=== PATIENT | female | born 1945 | race African-American/Black ===

== ENCOUNTER 2019-03-22 13:57 | Inpatient (IN) ==
[2019-03-22 15:35] LABS: Basophils # 0.1 10*3/uL (0.0-0.2); Basophils % 0.4 % (0.0-0.8); Eosinophils % 0.1 % (0.00-10.9); Hematocrit 19.1 VOL% (35.7-47.0); Immature Granulocytes % 0.7 %; Immature Granulocytes Absolute 0.08 #; Lymphocytes % 8.9 % (21.3-54.2); Mean Corpuscular HGB Conc 30.4 GM/DL (32-36); Mean Corpuscular Volume 93.6 FL (87-102); Mean Platelet Volume 10.2 FL (9.6-12.0); Monocytes % 6.7 % (1.7-12.7); NRBC # 0.03 10*3/uL; Neutrophils % 83.2 % (38.7-73.9); Platelet Count 343 T/CUMM (130-400); Red Blood Count 2.04 MC/CUMM (3.8-5.5); Red Cell Distribution Width 17.8 % (9.3-17.3); White Blood Count 11.6 T/CUMM (4-12)
[2019-03-22 15:45] LABS: Hemoglobin 5.8 GM/DL (12.0-16.0)
[2019-03-22 15:53] LABS: PT Patient Result 10.7 SECS (9.6-12.2); Partial Thromboplastin Time 21.9 SECS (20.8-36.0)
[2019-03-22 16:00] LABS: % Iron Saturation 27.1 % (18-50); Alanine Aminotransferase 20 U/L (13-56); Albumin 3.4 G/DL (3.4-5.0); Alkaline Phosphatase 71 U/L (45-117); Aspartate Amino Transferase 15 U/L (0-37); Bilirubin,Total < 0.39 MG/DL (0.2-1.0); Blood Urea Nitrogen 22 MG/DL (7-18); Calcium 8.9 MG/DL (8.5-10.1); Estimated Glom Filtration Rate 104 ML/MIN; Ferritin 22.7 ng/ml (8-252); Glucose 175 MG/DL (74-106); Iron 89 UG/DL (50-170); Iron Binding Capacity 328 UG/DL (250-450); Osmolality,Calculated 279.8 MOS/KG (273-304)
[2019-03-22 16:06] LABS: Folate > 24.0 NG/ML (5.4-24.0); Vitamin B12 578 PG/ML (211-911)
[2019-03-22] MEDS ORDERED: DEXTROSE 10% 25 GM/250 ML BAG IV PRN (16:26)
[2019-03-22] MEDS ORDERED: PANTOPRAZOLE 40 MG VIAL IV STA (16:26)
[2019-03-22] MEDS ORDERED: ONDANSETRON 4 MG/2 ML VIAL IV PRN (16:26)
[2019-03-22] MEDS ORDERED: GLUCAGON 1 MG VIAL IM PRN (16:26)
[2019-03-22] MEDS ORDERED: SODIUM CHLORIDE 0.9% 1,000 ML IV PRN (16:38)
[2019-03-22] MEDS ORDERED: FUROSEMIDE 20 MG/2 ML VIAL IV ONE (16:40)
[2019-03-22] MEDS ORDERED: PANTOPRAZOLE INJ 200 MG in SODIUM CHLORIDE 0.9% 250 ML IV SCH (17:00)
[2019-03-22] MEDS: INSULIN LISPRO 100 UNIT/ML SUBCUT SCH ×2 (18:31→21:27)
[2019-03-22] MEDS: SODIUM CHLORIDE 0.9% 1,000 ML IV SCH (20:02)
[2019-03-22 22:27] LABS: Hematocrit 16.5 VOL% (35.7-47.0)
[2019-03-22 23:44] LABS: Apearance,Urine CLEAR (Clear); Bacteria,Urine Occasional /HPF (Few); Bilirubin,Urine Negative (Negative); Blood, Urine Negative (Negative); Glucose,Urine (UA) >=500 mg/dL (Negative); Ketones,Urine Negative (Negative); Nitrite,Urine Negative (Negative); Protein,Urine Negative; RBC,Urine 4 /HPF (0-4); Urine Color Straw (Yellow); Urine Specific Gravity 1.011 (1.001-1.035); Urine Urobilinogen < 2.0 EU/DL (0.2-1.0); WBC,Urine 1 /HPF (0-6)
[2019-03-23] MEDS ORDERED: FUROSEMIDE 20 MG/2 ML VIAL IV ONE (01:30)
[2019-03-23 02:35] LABS: Basophils % 0.3 % (0.0-0.8); Eosinophils % 0.1 % (0.00-10.9); Hematocrit 21.5 VOL% (35.7-47.0); Hemoglobin 6.6 GM/DL (12.0-16.0); Immature Granulocytes % 0.7 %; Immature Granulocytes Absolute 0.08 #; Lymphocytes # 1.6 10*3/uL (1.4-4.0); Lymphocytes % 12.6 % (21.3-54.2); Mean Corpuscular HGB Conc 30.7 GM/DL (32-36); Mean Corpuscular Volume 90.7 FL (87-102); Mean Platelet Volume 9.8 FL (9.6-12.0); Monocytes % 7.7 % (1.7-12.7); NRBC # 0.03 10*3/uL; Neutrophils % 78.6 % (38.7-73.9); Platelet Count 329 T/CUMM (130-400); Red Blood Count 2.37 MC/CUMM (3.8-5.5); Red Cell Distribution Width 17.3 % (9.3-17.3); White Blood Count 12.3 T/CUMM (4-12)
[2019-03-23 02:44] LABS: INR 0.9; PT Patient Result 10.3 SECS (9.6-12.2); Partial Thromboplastin Time 22.9 SECS (20.8-36.0)
[2019-03-23 02:56] LABS: VLDL CHOLESTEROL 25.4 MG/DL
[2019-03-23 07:23] LABS: Hematocrit 24.5 VOL% (35.7-47.0); Hemoglobin 7.7 GM/DL (12.0-16.0)
[2019-03-23] MEDS: INSULIN LISPRO 100 UNIT/ML SUBCUT SCH ×4 (09:23→20:40)
[2019-03-23 10:36] LABS: Hematocrit 25.3 VOL% (35.7-47.0); Hemoglobin 8.2 GM/DL (12.0-16.0)
[2019-03-23] MEDS ORDERED: INFLUENZA VIRUS VACCINE 0.5 ML SYRINGE IM ONE (12:00)
[2019-03-23] MEDS: SODIUM CHLORIDE 0.9% 1,000 ML IV SCH ×3 (13:41→21:08)
[2019-03-23 14:42] LABS: Hematocrit 24.4 VOL% (35.7-47.0); Hemoglobin 7.7 GM/DL (12.0-16.0)
[2019-03-23] MEDS: PANTOPRAZOLE 40 MG VIAL IV SCH (20:38)
[2019-03-24 03:04] LABS: Basophils % 0.3 % (0.0-0.8); Eosinophils # 0.1 10*3/uL (0.0-0.87); Eosinophils % 0.5 % (0.00-10.9); Hematocrit 24.1 VOL% (35.7-47.0); Hemoglobin 7.6 GM/DL (12.0-16.0); Immature Granulocytes % 0.3 %; Immature Granulocytes Absolute 0.04 #; Lymphocytes # 1.7 10*3/uL (1.4-4.0); Lymphocytes % 13.1 % (21.3-54.2); Mean Corpuscular HGB Conc 31.5 GM/DL (32-36); Mean Corpuscular Volume 88.6 FL (87-102); Mean Platelet Volume 10.3 FL (9.6-12.0); Monocytes % 7.2 % (1.7-12.7); Neutrophils % 78.6 % (38.7-73.9); Platelet Count 326 T/CUMM (130-400); Red Blood Count 2.72 MC/CUMM (3.8-5.5); Red Cell Distribution Width 18.1 % (9.3-17.3); White Blood Count 13.2 T/CUMM (4-12)
[2019-03-24 03:07] LABS: PT Patient Result 10.6 SECS (9.6-12.2)
[2019-03-24] MEDS ORDERED: SODIUM CHLORIDE 0.9% 1,000 ML IV PRN (03:46)
[2019-03-24] MEDS: PANTOPRAZOLE 40 MG VIAL IV SCH ×2 (09:05→20:41)
[2019-03-24] MEDS: INSULIN LISPRO 100 UNIT/ML SUBCUT SCH ×4 (09:05→20:40)
[2019-03-24] MEDS: SODIUM CHLORIDE 0.9% 1,000 ML IV SCH ×2 (12:29→14:00)
[2019-03-24 15:01] LABS: Hematocrit 33.1 VOL% (35.7-47.0)
[2019-03-24 15:02] LABS: Hemoglobin 11.3 GM/DL (12.0-16.0)
[2019-03-25] MEDS: SODIUM CHLORIDE 0.9% 1,000 ML IV SCH ×2 (02:08→10:19)
[2019-03-25 02:22] LABS: Basophils # 0.1 10*3/uL (0.0-0.2); Basophils % 0.4 % (0.0-0.8); Eosinophils # 0.1 10*3/uL (0.0-0.87); Eosinophils % 0.5 % (0.00-10.9); Hematocrit 32.6 VOL% (35.7-47.0); Hemoglobin 10.6 GM/DL (12.0-16.0); Immature Granulocytes % 0.5 %; Immature Granulocytes Absolute 0.08 #; Lymphocytes # 1.6 10*3/uL (1.4-4.0); Lymphocytes % 10.6 % (21.3-54.2); Mean Corpuscular HGB Conc 32.5 GM/DL (32-36); Mean Corpuscular Volume 88.8 FL (87-102); Mean Platelet Volume 10.1 FL (9.6-12.0); Monocytes % 6.3 % (1.7-12.7); Neutrophils % 81.7 % (38.7-73.9); Platelet Count 383 T/CUMM (130-400); Red Blood Count 3.67 MC/CUMM (3.8-5.5); Red Cell Distribution Width 16.8 % (9.3-17.3); White Blood Count 14.8 T/CUMM (4-12)
[2019-03-25 02:28] LABS: PT Patient Result 10.6 SECS (9.6-12.2)
[2019-03-25] MEDS ORDERED: LACTATED RINGERS 1,000 ML IV SCH (07:00)
[2019-03-25] MEDS ORDERED: PROPOFOL 200 MG/20 ML VIAL IV ONE (10:00)
[2019-03-25] MEDS ORDERED: VALSARTAN/HCTZ 160-12.5 MG TABLET PO SCH (10:00)
[2019-03-25] MEDS ORDERED: LIDOCAINE 2% 5 ML VIAL ONE (10:00)
[2019-03-25] MEDS: INSULIN LISPRO 100 UNIT/ML SUBCUT SCH ×2 (10:16→12:04)
[2019-03-25] MEDS: PANTOPRAZOLE 40 MG VIAL IV SCH (10:45)
[2019-03-25] MEDS ORDERED: VALSARTAN 160 MG TABLET PO SCH (11:00)
[2019-03-25 12:07] VITALS: BP 124/97
[2019-03-25] MEDS ORDERED: SIMVASTATIN 20 MG TABLET PO SCH (21:00)
[2019-03-25] MEDS ORDERED: GABAPENTIN 300 MG CAPSULE PO SCH (21:00)
[2019-03-25] MEDS ORDERED: DULoxetine 30 MG CAPSULE PO SCH (21:00)
[2019-03-25] MEDS ORDERED: cloNIDine 0.1 MG TABLET PO SCH (21:00)
[2019-03-26] MEDS ORDERED: OXYBUTYNIN XL 5 MG TABLET PO SCH (09:00)
[2019-03-26] MEDS ORDERED: SERTRALINE 50 MG TABLET PO SCH (09:00)
[2019-03-26] MEDS ORDERED: POTASSIUM CHLORIDE 10 MEQ TABLET PO SCH (09:00)
[2019-03-26] MEDS ORDERED: FOLIC ACID 1 MG TABLET PO SCH (09:00)
== END 2019-03-25 14:07 | disposition home or self-care (01) | DRG 378 ==
LOC: N.ED 13:57 → N.EDINP 16:26 → N.4E 16:58
PROVIDERS: ADMIT Internal Medicine; ATTEND Internal Medicine

== ENCOUNTER 2019-08-15 00:30 | Inpatient (IN) ==
[2019-08-15] MEDS ORDERED: PANTOPRAZOLE INJ 80 MG in SODIUM CHLORIDE 0.9% 100 ML IV STA (00:49)
[2019-08-15 01:15] LABS: Basophils # 0.1 10*3/uL (0.0-0.2); Basophils % 0.5 % (0.0-0.8); Eosinophils % 0.2 % (0.00-10.9); Hematocrit 24.3 VOL% (35.7-47.0); Hemoglobin 7.7 GM/DL (12.0-16.0); Immature Granulocytes % 0.7 %; Immature Granulocytes Absolute 0.09 #; Lymphocytes # 1.1 10*3/uL (1.4-4.0); Lymphocytes % 8.5 % (21.3-54.2); Mean Corpuscular HGB Conc 31.7 GM/DL (32-36); Mean Corpuscular Volume 89.7 FL (87-102); Mean Platelet Volume 11.2 FL (9.6-12.0); Monocytes % 3.1 % (1.7-12.7); Platelet Count 223 T/CUMM (130-400); Red Blood Count 2.71 MC/CUMM (3.8-5.5); Red Cell Distribution Width 16.6 % (9.3-17.3); White Blood Count 12.7 T/CUMM (4-12)
[2019-08-15] MEDS ORDERED: PANTOPRAZOLE 40 MG VIAL IV ONE (01:19)
[2019-08-15 01:29] LABS: PT Patient Result 11.3 SECS (9.6-12.2); Partial Thromboplastin Time 24.3 SECS (20.8-36.0)
[2019-08-15 01:30] LABS: Alanine Aminotransferase 20 U/L (13-56); Alkaline Phosphatase 79 U/L (45-117); Aspartate Amino Transferase 18 U/L (0-37); Bilirubin,Total < 0.39 MG/DL (0.2-1.0); Blood Urea Nitrogen 23 MG/DL (7-18); Calcium 8.9 MG/DL (8.5-10.1); Estimated Glom Filtration Rate 87 ML/MIN; Glucose 304 MG/DL (74-106); Osmolality,Calculated 293.4 MOS/KG (273-304); Total Protein 6.8 G/DL (6.4-8.3)
[2019-08-15] MEDS ORDERED: ACETAMINOPHEN 325 MG TABLET PO PRN (01:49)
[2019-08-15] MEDS ORDERED: hydrALAZINE 20 MG/1 ML VIAL IV PRN (01:49)
[2019-08-15] MEDS ORDERED: ONDANSETRON 4 MG/2 ML VIAL IV PRN (01:49)
[2019-08-15] MEDS ORDERED: NICOTINE 21 MG/24 HR PATCH TRANSDERM PRN (01:49)
[2019-08-15] MEDS ORDERED: MORPHINE 4 MG/1 ML VIAL IV PRN (01:49)
[2019-08-15] MEDS ORDERED: DEXTROSE 50% 25 GM/50 ML SYRINGE IV PRN (01:52)
[2019-08-15] MEDS ORDERED: GLUCAGON 1 MG VIAL IM PRN (01:52)
[2019-08-15] MEDS: INSULIN REGULAR 100 UNIT/ML SUBCUT SCH ×5 (04:19→22:54)
[2019-08-15] MEDS: PANTOPRAZOLE INJ 200 MG in SODIUM CHLORIDE 0.9% 250 ML IV SCH (04:25)
[2019-08-15] MEDS ORDERED: SODIUM CHLORIDE 0.9% 1,000 ML IV PRN (04:36)
[2019-08-15 04:59] LABS: Basophils % 0.3 % (0.0-0.8); Eosinophils % 0.1 % (0.00-10.9); Hematocrit 22.7 VOL% (35.7-47.0); Hemoglobin 6.7 GM/DL (12.0-16.0); Immature Granulocytes % 0.6 %; Immature Granulocytes Absolute 0.09 #; Lymphocytes # 1.2 10*3/uL (1.4-4.0); Lymphocytes % 8.4 % (21.3-54.2); Mean Corpuscular HGB Conc 29.5 GM/DL (32-36); Mean Corpuscular Volume 92.7 FL (87-102); Mean Platelet Volume 11.4 FL (9.6-12.0); Monocytes % 4.9 % (1.7-12.7); Neutrophils % 85.7 % (38.7-73.9); Platelet Count 209 T/CUMM (130-400); Red Blood Count 2.45 MC/CUMM (3.8-5.5); Red Cell Distribution Width 16.6 % (9.3-17.3); White Blood Count 14.1 T/CUMM (4-12)
[2019-08-15] MEDS: SERTRALINE 50 MG TABLET PO SCH ×2 (08:25→22:54)
[2019-08-15] MEDS: amLODIPine 5 MG TABLET PO SCH (08:25)
[2019-08-15] MEDS: VALSARTAN/HCTZ 160-12.5 MG TABLET PO SCH (08:25)
[2019-08-15] MEDS ORDERED: POTASSIUM CHLORIDE 20 MEQ TABLET PO ONE (10:06)
[2019-08-15 13:37] LABS: Hematocrit 28.1 VOL% (35.7-47.0); Hemoglobin 9.3 GM/DL (12.0-16.0)
[2019-08-16 05:19] LABS: Basophils # 0.1 10*3/uL (0.0-0.2); Basophils % 0.6 % (0.0-0.8); Eosinophils # 0.1 10*3/uL (0.0-0.87); Eosinophils % 0.9 % (0.00-10.9); Hematocrit 31.1 VOL% (35.7-47.0); Hemoglobin 9.7 GM/DL (12.0-16.0); Immature Granulocytes % 0.5 %; Immature Granulocytes Absolute 0.07 #; Lymphocytes # 2.4 10*3/uL (1.4-4.0); Lymphocytes % 16.4 % (21.3-54.2); Mean Corpuscular HGB Conc 31.2 GM/DL (32-36); Mean Corpuscular Volume 90.4 FL (87-102); Mean Platelet Volume 11.6 FL (9.6-12.0); Monocytes % 7.1 % (1.7-12.7); Neutrophils % 74.5 % (38.7-73.9); Platelet Count 251 T/CUMM (130-400); Red Blood Count 3.44 MC/CUMM (3.8-5.5); White Blood Count 14.5 T/CUMM (4-12)
[2019-08-16] MEDS: PANTOPRAZOLE INJ 200 MG in SODIUM CHLORIDE 0.9% 250 ML IV SCH (06:01)
[2019-08-16] MEDS ORDERED: POTASSIUM CHLORIDE RIDER 10 MEQ in PREMIX 1 EACH IV SCH (07:00)
[2019-08-16 07:57] LABS: Calcium 8.8 MG/DL (8.5-10.1); Osmolality,Calculated 282.3 MOS/KG (273-304)
[2019-08-16] MEDS: INSULIN REGULAR 100 UNIT/ML SUBCUT SCH ×4 (08:30→21:19)
[2019-08-16] MEDS ORDERED: POTASSIUM CHLORIDE 20 MEQ TABLET PO ONE (09:32)
[2019-08-16] MEDS: amLODIPine 5 MG TABLET PO SCH (11:01)
[2019-08-16] MEDS: VALSARTAN/HCTZ 160-12.5 MG TABLET PO SCH (11:01)
[2019-08-16] MEDS: SERTRALINE 50 MG TABLET PO SCH ×2 (11:07→21:19)
[2019-08-17 04:35] LABS: Basophils # 0.1 10*3/uL (0.0-0.2); Basophils % 0.5 % (0.0-0.8); Eosinophils # 0.1 10*3/uL (0.0-0.87); Eosinophils % 0.7 % (0.00-10.9); Hematocrit 30.2 VOL% (35.7-47.0); Hemoglobin 9.5 GM/DL (12.0-16.0); Immature Granulocytes % 0.6 %; Immature Granulocytes Absolute 0.08 #; Lymphocytes % 14.5 % (21.3-54.2); Mean Corpuscular HGB Conc 31.5 GM/DL (32-36); Mean Corpuscular Volume 89.9 FL (87-102); Mean Platelet Volume 11.4 FL (9.6-12.0); Monocytes % 7.2 % (1.7-12.7); Neutrophils % 76.5 % (38.7-73.9); Platelet Count 243 T/CUMM (130-400); Red Blood Count 3.36 MC/CUMM (3.8-5.5); Red Cell Distribution Width 16.5 % (9.3-17.3); White Blood Count 13.5 T/CUMM (4-12)
[2019-08-17 07:53] VITALS: BP 127/89
[2019-08-17] MEDS: INSULIN REGULAR 100 UNIT/ML SUBCUT SCH ×2 (08:48→12:32)
[2019-08-17] MEDS: amLODIPine 5 MG TABLET PO SCH (08:48)
[2019-08-17] MEDS: VALSARTAN/HCTZ 160-12.5 MG TABLET PO SCH (08:48)
[2019-08-17] MEDS: SERTRALINE 50 MG TABLET PO SCH (08:49)
[2019-08-17] MEDS: PANTOPRAZOLE INJ 200 MG in SODIUM CHLORIDE 0.9% 250 ML IV SCH (08:54)
[2019-08-17] MEDS ORDERED: LIDOCAINE 2% 5 ML VIAL ONE (09:00)
[2019-08-17] MEDS ORDERED: PANTOPRAZOLE 40 MG TABLET PO SCH (09:00)
[2019-08-17] MEDS ORDERED: propofoL 200 MG/20 ML VIAL IV ONE (09:00)
== END 2019-08-17 13:55 | disposition home or self-care (01) | DRG 378 ==
LOC: EDBD → EDUNIT# → N.ED 00:30 → N.EDINP 01:49 → SUATTDRO 01:49 → N.EDINP 03:33 → N.5E 04:12
PROVIDERS: ADMIT Internal Medicine; ATTEND Internal Medicine Geriatric Medicine

== ENCOUNTER 2019-08-29 11:23 | Observation (INO) ==
[2019-08-29] MEDS ORDERED: SODIUM CHLORIDE 0.9% 1,000 ML IV STA (11:26)
[2019-08-29 11:59] LABS: Basophils # 0.1 10*3/uL (0.0-0.2); Basophils % 0.5 % (0.0-0.8); Eosinophils # 0.1 10*3/uL (0.0-0.87); Eosinophils % 0.8 % (0.00-10.9); Hematocrit 23.6 VOL% (35.7-47.0); Hemoglobin 7.2 GM/DL (12.0-16.0); Immature Granulocytes % 0.6 %; Immature Granulocytes Absolute 0.08 #; Lymphocytes # 1.9 10*3/uL (1.4-4.0); Lymphocytes % 14.5 % (21.3-54.2); Mean Corpuscular HGB Conc 30.5 GM/DL (32-36); Mean Corpuscular Volume 93.7 FL (87-102); Mean Platelet Volume 10.6 FL (9.6-12.0); Monocytes % 5.7 % (1.7-12.7); NRBC # 0.02 10*3/uL; Neutrophils % 77.9 % (38.7-73.9); Platelet Count 310 T/CUMM (130-400); Red Blood Count 2.52 MC/CUMM (3.8-5.5); Red Cell Distribution Width 17.7 % (9.3-17.3); White Blood Count 13.2 T/CUMM (4-12)
[2019-08-29 12:10] LABS: PT Patient Result 10.8 SECS (9.6-12.2); Partial Thromboplastin Time 25.2 SECS (20.8-36.0)
[2019-08-29] MEDS ORDERED: FUROSEMIDE 20 MG/2 ML VIAL IV PRN (12:18)
[2019-08-29] MEDS ORDERED: SODIUM CHLORIDE 0.9% 1,000 ML IV PRN (12:18)
[2019-08-29 12:19] LABS: Alanine Aminotransferase 19 U/L (13-56); Albumin 3.4 G/DL (3.4-5.0); Alkaline Phosphatase 79 U/L (45-117); Aspartate Amino Transferase 16 U/L (0-37); Bilirubin,Total < 0.39 MG/DL (0.2-1.0); Blood Urea Nitrogen 33 MG/DL (7-18); Calcium 8.9 MG/DL (8.5-10.1); Estimated Glom Filtration Rate 78 ML/MIN; Glucose 225 MG/DL (74-106); Osmolality,Calculated 288.7 MOS/KG (273-304); Total Protein 7.3 G/DL (6.4-8.3)
[2019-08-29] MEDS ORDERED: GLUCAGON 1 MG VIAL IM PRN ×2 (15:20)
[2019-08-29] MEDS ORDERED: DEXTROSE 50% 25 GM/50 ML VIAL IV PRN ×2 (15:20)
[2019-08-29] MEDS ORDERED: ONDANSETRON 4 MG/2 ML VIAL IV PRN (15:20)
[2019-08-29] MEDS ORDERED: INSULIN LISPRO 100 UNIT/ML SUBCUT SCH (16:30)
[2019-08-29] MEDS: INSULIN LISPRO 100 UNIT/ML SUBCUT SCH ×2 (19:11→21:47)
[2019-08-29] MEDS: POTASSIUM CHLORIDE 20 MEQ TABLET PO PRN (19:19)
[2019-08-29] MEDS: PANTOPRAZOLE 40 MG TABLET PO SCH (19:19)
[2019-08-29] MEDS: POLYETHYLENE GLYCOL POWDER 17 GM PACK PO SCH (21:47)
[2019-08-30 03:04] LABS: Basophils # 0.1 10*3/uL (0.0-0.2); Basophils % 0.6 % (0.0-0.8); Eosinophils # 0.1 10*3/uL (0.0-0.87); Eosinophils % 1.3 % (0.00-10.9); Hematocrit 28.1 VOL% (35.7-47.0); Hemoglobin 8.8 GM/DL (12.0-16.0); Immature Granulocytes % 0.6 %; Immature Granulocytes Absolute 0.07 #; Lymphocytes # 1.6 10*3/uL (1.4-4.0); Lymphocytes % 14.6 % (21.3-54.2); Mean Corpuscular HGB Conc 31.3 GM/DL (32-36); Mean Corpuscular Volume 92.4 FL (87-102); Mean Platelet Volume 10.1 FL (9.6-12.0); NRBC # 0.02 10*3/uL; Neutrophils % 75.9 % (38.7-73.9); Platelet Count 242 T/CUMM (130-400); Red Blood Count 3.04 MC/CUMM (3.8-5.5); White Blood Count 11.1 T/CUMM (4-12)
[2019-08-30] MEDS: PANTOPRAZOLE 40 MG TABLET PO SCH ×2 (06:31→20:55)
[2019-08-30 06:33] LABS: Calcium 9.2 MG/DL (8.5-10.1); Osmolality,Calculated 280.5 MOS/KG (273-304)
[2019-08-30] MEDS: INSULIN LISPRO 100 UNIT/ML SUBCUT SCH ×4 (08:12→20:55)
[2019-08-30] MEDS: POTASSIUM CHLORIDE 20 MEQ TABLET PO PRN (08:12)
[2019-08-30] MEDS: POLYETHYLENE GLYCOL POWDER 17 GM PACK PO SCH ×2 (08:14→20:57)
[2019-08-30 08:52] LABS: Total Protein 7.5 G/DL (6.4-8.3)
[2019-08-31 05:31] LABS: Immunoglobulin A (Chem) 399 MG/DL (70-400); Immunoglobulin G (Chem) 968 MG/DL (700-1600); Immunoglobulin M (Chem) 74 MG/DL (40-230); Total Protein (Chem) 7.5 G/DL (6.4-8.3)
[2019-08-31 05:57] LABS: Basophils # 0.1 10*3/uL (0.0-0.2); Basophils % 0.6 % (0.0-0.8); Eosinophils # 0.2 10*3/uL (0.0-0.87); Hematocrit 34.4 VOL% (35.7-47.0); Hemoglobin 10.8 GM/DL (12.0-16.0); Immature Granulocytes % 0.2 %; Immature Granulocytes Absolute 0.02 #; Lymphocytes # 1.6 10*3/uL (1.4-4.0); Lymphocytes % 19.6 % (21.3-54.2); Mean Corpuscular HGB Conc 31.4 GM/DL (32-36); Mean Corpuscular Volume 91.7 FL (87-102); Mean Platelet Volume 10.6 FL (9.6-12.0); Neutrophils % 70.6 % (38.7-73.9); Platelet Count 293 T/CUMM (130-400); Red Blood Count 3.75 MC/CUMM (3.8-5.5); Red Cell Distribution Width 17.5 % (9.3-17.3)
[2019-08-31] MEDS: PANTOPRAZOLE 40 MG TABLET PO SCH (06:12)
[2019-08-31] MEDS: INSULIN LISPRO 100 UNIT/ML SUBCUT SCH ×2 (07:41→12:32)
[2019-08-31 08:53] LABS: Albumin (SPE) 4.5 G/DL (3.2-5.3); Albumin (SPE) Rel % 59.4 %; Alpha 1 (SPE) 0.3 G/DL (0.1-0.4); Alpha 1 (SPE) Rel % 3.4 %; Alpha 2 (SPE) 0.9 G/DL (0.4-1.0); Alpha 2 (SPE) Rel % 11.6 %; Beta (SPE) 1.1 G/DL (0.5-1.1); Beta (SPE) Rel % 14.2 %; Gamma (SPE) 0.9 G/DL (0.7-1.7); Gamma (SPE) Rel % 11.4 %
[2019-08-31] MEDS: POLYETHYLENE GLYCOL POWDER 17 GM PACK PO SCH (09:32)
[2019-08-31 12:16] VITALS: BP 144/73
== END 2019-08-31 14:08 | disposition home or self-care (01) ==
LOC: N.EDINP 11:23 → N.ED 11:23 → N.5E 16:03
PROVIDERS: ADMIT Internal Medicine Geriatric Medicine; ATTEND Internal Medicine Geriatric Medicine

== ENCOUNTER 2019-11-28 13:21 | Inpatient (IN) ==
[2019-11-28 15:21] LABS: Basophils # 0.1 10*3/uL (0.0-0.2); Basophils % 0.4 % (0.0-0.8); Eosinophils # 0.1 10*3/uL (0.0-0.87); Eosinophils % 0.5 % (0.00-10.9); Hematocrit 23.2 VOL% (35.7-47.0); Hemoglobin 7.3 GM/DL (12.0-16.0); Immature Granulocytes % 0.4 %; Immature Granulocytes Absolute 0.05 #; Lymphocytes # 1.6 10*3/uL (1.4-4.0); Lymphocytes % 14.2 % (21.3-54.2); Mean Corpuscular HGB Conc 31.5 GM/DL (32-36); Mean Corpuscular Volume 93.2 FL (87-102); Mean Platelet Volume 10.2 FL (9.6-12.0); Neutrophils % 77.5 % (38.7-73.9); Platelet Count 251 T/CUMM (130-400); Red Blood Count 2.49 MC/CUMM (3.8-5.5); Red Cell Distribution Width 17.7 % (9.3-17.3); White Blood Count 11.5 T/CUMM (4-12)
[2019-11-28 15:32] LABS: PT Patient Result 11.1 SECS (9.8-11.9)
[2019-11-28 15:43] LABS: Calcium 8.9 MG/DL (8.5-10.1); Osmolality,Calculated 278.5 MOS/KG (273-304)
[2019-11-28] MEDS ORDERED: SODIUM CHLORIDE 0.9% 500 ML IV STA (15:58)
[2019-11-28] MEDS ORDERED: ONDANSETRON 4 MG/2 ML VIAL IV STA (15:58)
[2019-11-28] MEDS ORDERED: PANTOPRAZOLE 40 MG VIAL IV STA (15:58)
[2019-11-28] MEDS ORDERED: ONDANSETRON 4 MG/2 ML VIAL IV PRN (17:15)
[2019-11-28] MEDS ORDERED: ACETAMINOPHEN 325 MG TABLET PO PRN (17:15)
[2019-11-28] MEDS ORDERED: GLUCAGON 1 MG VIAL IM PRN (17:15)
[2019-11-28] MEDS ORDERED: DEXTROSE 10% 250 ML BAG IV PRN (17:15)
[2019-11-28] MEDS ORDERED: OXYBUTYNIN XL 10 MG TABLET PO PRN (17:43)
[2019-11-28 17:49] LABS: Troponin I < 0.015 NG/ML (0.00-0.045)
[2019-11-28] MEDS ORDERED: SODIUM CHLORIDE 0.9% 1,000 ML IV PRN (17:50)
[2019-11-28] MEDS ORDERED: diphenhydrAMINE 50 MG/1 ML VIAL IV PRN (17:50)
[2019-11-28] MEDS ORDERED: FUROSEMIDE 20 MG/2 ML VIAL IV PRN (17:50)
[2019-11-28] MEDS: SODIUM CHLORIDE 0.9% 1,000 ML IV SCH (18:19)
[2019-11-28 20:36] LABS: Hematocrit 22.9 VOL% (35.7-47.0)
[2019-11-28] MEDS ORDERED: METHOTREXATE 2.5 MG TABLET PO SCH (23:30)
[2019-11-28] MEDS: GABAPENTIN 300 MG CAPSULE PO SCH (23:48)
[2019-11-28] MEDS: cloNIDine 0.1 MG TABLET PO SCH (23:48)
[2019-11-28] MEDS: DULoxetine 30 MG CAPSULE PO SCH (23:48)
[2019-11-28] MEDS: OMEGA 3 ACID ETHYL ESTERS 1 GM CAPSULE PO SCH (23:48)
[2019-11-28] MEDS: SIMVASTATIN 20 MG TABLET PO SCH (23:48)
[2019-11-28] MEDS: SERTRALINE 50 MG TABLET PO SCH (23:48)
[2019-11-28] MEDS: FERROUS SULFATE 325 MG TABLET PO SCH (23:49)
[2019-11-28] MEDS: POTASSIUM CHLORIDE 10 MEQ TABLET PO SCH (23:49)
[2019-11-28] MEDS: INSULIN LISPRO 100 UNIT/ML SUBCUT SCH (23:49)
[2019-11-29 02:18] LABS: Basophils % 0.4 % (0.0-0.8); Eosinophils # 0.1 10*3/uL (0.0-0.87); Eosinophils % 0.8 % (0.00-10.9); Hematocrit 21.1 VOL% (35.7-47.0); Hemoglobin 6.6 GM/DL (12.0-16.0); Immature Granulocytes % 0.5 %; Immature Granulocytes Absolute 0.05 #; Lymphocytes # 1.5 10*3/uL (1.4-4.0); Lymphocytes % 15.3 % (21.3-54.2); Mean Corpuscular HGB Conc 31.3 GM/DL (32-36); Mean Corpuscular Volume 94.2 FL (87-102); Mean Platelet Volume 10.3 FL (9.6-12.0); Monocytes % 7.5 % (1.7-12.7); Neutrophils % 75.5 % (38.7-73.9); Platelet Count 224 T/CUMM (130-400); Red Blood Count 2.24 MC/CUMM (3.8-5.5); Red Cell Distribution Width 17.7 % (9.3-17.3); White Blood Count 10.1 T/CUMM (4-12)
[2019-11-29 02:27] LABS: PT Patient Result 10.6 SECS (9.8-11.9)
[2019-11-29 02:48] LABS: Alanine Aminotransferase 20 U/L (13-56); Albumin 3.2 G/DL (3.4-5.0); Alkaline Phosphatase 79 U/L (45-117); Aspartate Amino Transferase 18 U/L (0-37); Bilirubin,Total < 0.39 MG/DL (0.2-1.0); Blood Urea Nitrogen 15 MG/DL (7-18); Calcium 8.5 MG/DL (8.5-10.1); Estimated Glom Filtration Rate 62 ML/MIN; Glucose 179 MG/DL (74-106); Osmolality,Calculated 279.7 MOS/KG (273-304)
[2019-11-29] MEDS: SODIUM CHLORIDE 0.9% 1,000 ML IV SCH ×3 (08:52→17:42)
[2019-11-29] MEDS ORDERED: PANTOPRAZOLE 40 MG VIAL IV SCH (09:00)
[2019-11-29 10:30] LABS: Hematocrit 23.1 VOL% (35.7-47.0); Hemoglobin 7.1 GM/DL (12.0-16.0)
[2019-11-29] MEDS: OMEGA 3 ACID ETHYL ESTERS 1 GM CAPSULE PO SCH ×2 (10:43→22:20)
[2019-11-29] MEDS: MULTIVITAMIN (CENTRUM) TABLET PO SCH (10:43)
[2019-11-29] MEDS: POTASSIUM CHLORIDE 10 MEQ TABLET PO SCH ×2 (10:43→22:20)
[2019-11-29] MEDS: amLODIPine 5 MG TABLET PO SCH (10:44)
[2019-11-29] MEDS: SERTRALINE 50 MG TABLET PO SCH ×2 (10:44→22:21)
[2019-11-29] MEDS: INSULIN LISPRO 100 UNIT/ML SUBCUT SCH ×4 (10:44→22:19)
[2019-11-29] MEDS: FOLIC ACID 1 MG TABLET PO SCH (10:44)
[2019-11-29] MEDS: FERROUS SULFATE 325 MG TABLET PO SCH ×2 (10:44→22:21)
[2019-11-29] MEDS: DULoxetine 30 MG CAPSULE PO SCH ×2 (10:44→22:20)
[2019-11-29] MEDS: PANTOPRAZOLE 40 MG VIAL IV SCH ×2 (10:45→22:21)
[2019-11-29 18:56] LABS: Hematocrit 26.9 VOL% (35.7-47.0); Hemoglobin 8.4 GM/DL (12.0-16.0)
[2019-11-29] MEDS: cloNIDine 0.1 MG TABLET PO SCH (22:20)
[2019-11-29] MEDS: GABAPENTIN 300 MG CAPSULE PO SCH (22:20)
[2019-11-29] MEDS: SIMVASTATIN 20 MG TABLET PO SCH (22:21)
[2019-11-30] MEDS: SODIUM CHLORIDE 0.9% 1,000 ML IV SCH ×4 (02:47→22:00)
[2019-11-30 05:56] LABS: Basophils % 0.5 % (0.0-0.8); Eosinophils # 0.1 10*3/uL (0.0-0.87); Eosinophils % 1.6 % (0.00-10.9); Hematocrit 26.7 VOL% (35.7-47.0); Hemoglobin 8.2 GM/DL (12.0-16.0); Immature Granulocytes % 0.5 %; Immature Granulocytes Absolute 0.04 #; Lymphocytes # 1.3 10*3/uL (1.4-4.0); Lymphocytes % 17.3 % (21.3-54.2); Mean Corpuscular HGB Conc 30.7 GM/DL (32-36); Mean Corpuscular Volume 90.8 FL (87-102); Mean Platelet Volume 10.5 FL (9.6-12.0); Monocytes % 8.1 % (1.7-12.7); Platelet Count 226 T/CUMM (130-400); Red Blood Count 2.94 MC/CUMM (3.8-5.5); White Blood Count 7.7 T/CUMM (4-12)
[2019-11-30 06:08] LABS: PT Patient Result 10.8 SECS (9.8-11.9)
[2019-11-30 06:18] LABS: Albumin 3.2 G/DL (3.4-5.0); Bilirubin,Total 0.4 MG/DL (0.2-1.0); Calcium 8.5 MG/DL (8.5-10.1); Osmolality,Calculated 280.4 MOS/KG (273-304); Total Protein 6.9 G/DL (6.4-8.3)
[2019-11-30] MEDS ORDERED: HEPARIN 5,000 UNIT/1 ML VIAL ONE (06:46)
[2019-11-30] MEDS ORDERED: TISSUE ADHESIVE 1 EACH APPLICATOR TOP ONE (06:46)
[2019-11-30] MEDS ORDERED: BUPIVACAINE MPF 0.25% 30 ML VIAL ONE (06:47)
[2019-11-30] MEDS ORDERED: LIDOCAINE 1%/EPI INJ 20 ML VIAL ONE (06:47)
[2019-11-30] MEDS ORDERED: ceFAZolin 1,000 MG in SYRINGE 1 EACH IV ONE (07:30)
[2019-11-30 07:52] LABS: Hematocrit 24.2 VOL% (35.7-47.0); Hemoglobin 7.4 GM/DL (12.0-16.0)
[2019-11-30] MEDS ORDERED: fentaNYL 100 MCG/2 ML VIAL ONE (07:55)
[2019-11-30] MEDS ORDERED: MIDAZOLAM 2 MG/2 ML VIAL ONE (07:55)
[2019-11-30] MEDS ORDERED: HEPARIN/NACL 0.9% 2 UNITS/ML 2,000 ML IV ONE (07:57)
[2019-11-30] MEDS ORDERED: HEPARIN/NACL 0.9% 2 UNITS/ML 1,000 ML IV ONE (08:00)
[2019-11-30] MEDS: INSULIN LISPRO 100 UNIT/ML SUBCUT SCH ×4 (08:47→22:45)
[2019-11-30] MEDS ORDERED: fentaNYL 100 MCG/2 ML VIAL IV ONE (09:00)
[2019-11-30] MEDS ORDERED: MIDAZOLAM 2 MG/2 ML VIAL IV ONE (09:00)
[2019-11-30] MEDS: SERTRALINE 50 MG TABLET PO SCH ×2 (11:33→21:08)
[2019-11-30] MEDS: amLODIPine 5 MG TABLET PO SCH (11:33)
[2019-11-30] MEDS: OMEGA 3 ACID ETHYL ESTERS 1 GM CAPSULE PO SCH ×2 (11:33→21:08)
[2019-11-30] MEDS: PANTOPRAZOLE 40 MG VIAL IV SCH ×2 (11:34→21:08)
[2019-11-30] MEDS: POTASSIUM CHLORIDE 10 MEQ TABLET PO SCH ×2 (11:34→21:08)
[2019-11-30] MEDS: FERROUS SULFATE 325 MG TABLET PO SCH ×2 (11:34→21:08)
[2019-11-30] MEDS: MULTIVITAMIN (CENTRUM) TABLET PO SCH (11:34)
[2019-11-30] MEDS: DULoxetine 30 MG CAPSULE PO SCH ×2 (11:34→21:07)
[2019-11-30] MEDS: FOLIC ACID 1 MG TABLET PO SCH (11:34)
[2019-11-30 19:32] LABS: Hematocrit 26.1 VOL% (35.7-47.0); Hemoglobin 8.2 GM/DL (12.0-16.0)
[2019-11-30] MEDS: SIMVASTATIN 20 MG TABLET PO SCH (21:08)
[2019-11-30] MEDS: GABAPENTIN 300 MG CAPSULE PO SCH (21:08)
[2019-11-30] MEDS: cloNIDine 0.1 MG TABLET PO SCH (21:08)
[2019-12-01 05:13] LABS: Basophils % 0.3 % (0.0-0.8); Eosinophils # 0.1 10*3/uL (0.0-0.87); Eosinophils % 1.3 % (0.00-10.9); Hematocrit 28.8 VOL% (35.7-47.0); Hemoglobin 8.9 GM/DL (12.0-16.0); Immature Granulocytes % 0.4 %; Immature Granulocytes Absolute 0.04 #; Lymphocytes # 1.2 10*3/uL (1.4-4.0); Lymphocytes % 11.6 % (21.3-54.2); Mean Corpuscular HGB Conc 30.9 GM/DL (32-36); Mean Corpuscular Volume 89.4 FL (87-102); Mean Platelet Volume 10.8 FL (9.6-12.0); Monocytes % 7.5 % (1.7-12.7); Neutrophils % 78.9 % (38.7-73.9); Platelet Count 275 T/CUMM (130-400); Red Blood Count 3.22 MC/CUMM (3.8-5.5); Red Cell Distribution Width 18.8 % (9.3-17.3); White Blood Count 10.7 T/CUMM (4-12)
[2019-12-01 05:32] LABS: Albumin 3.4 G/DL (3.4-5.0); Bilirubin,Total 0.6 MG/DL (0.2-1.0); Calcium 9.2 MG/DL (8.5-10.1); Osmolality,Calculated 281.4 MOS/KG (273-304); Total Protein 7.7 G/DL (6.4-8.3)
[2019-12-01 05:42] LABS: PT Patient Result 10.3 SECS (9.8-11.9)
[2019-12-01] MEDS: SODIUM CHLORIDE 0.9% 1,000 ML IV SCH (06:00)
[2019-12-01 08:23] VITALS: BP 111/83
[2019-12-01] MEDS: OMEGA 3 ACID ETHYL ESTERS 1 GM CAPSULE PO SCH (08:57)
[2019-12-01] MEDS: amLODIPine 5 MG TABLET PO SCH (08:57)
[2019-12-01] MEDS: FERROUS SULFATE 325 MG TABLET PO SCH (08:57)
[2019-12-01] MEDS: DULoxetine 30 MG CAPSULE PO SCH (08:57)
[2019-12-01] MEDS: FOLIC ACID 1 MG TABLET PO SCH (08:57)
[2019-12-01] MEDS: MULTIVITAMIN (CENTRUM) TABLET PO SCH (08:57)
[2019-12-01] MEDS: PANTOPRAZOLE 40 MG VIAL IV SCH (08:57)
[2019-12-01] MEDS: SERTRALINE 50 MG TABLET PO SCH (08:57)
[2019-12-01] MEDS: POTASSIUM CHLORIDE 10 MEQ TABLET PO SCH (08:57)
[2019-12-01] MEDS: INSULIN LISPRO 100 UNIT/ML SUBCUT SCH (08:58)
== END 2019-12-01 12:46 | disposition home or self-care (01) | DRG 271 ==
LOC: N.ED 13:21 → N.EDINP 17:15 → N.3E 18:53
PROVIDERS: ADMIT Emergency Medicine; ATTEND Emergency Medicine

== ENCOUNTER 2020-05-02 14:12 | Inpatient (IN) ==
[2020-05-02 15:09] LABS: Basophils # 0.1 10*3/uL (0.0-0.2); Basophils % 0.6 % (0.0-0.8); Eosinophils # 0.1 10*3/uL (0.0-0.87); Eosinophils % 0.7 % (0.00-10.9); Hematocrit 24.7 VOL% (35.7-47.0); Immature Granulocytes % 0.5 %; Immature Granulocytes Absolute 0.07 #; Lymphocytes # 1.9 10*3/uL (1.4-4.0); Lymphocytes % 13.5 % (21.3-54.2); Mean Corpuscular HGB Conc 32.4 GM/DL (32-36); Mean Corpuscular Volume 90.1 FL (87-102); Mean Platelet Volume 11.2 FL (9.6-12.0); Monocytes % 6.4 % (1.7-12.7); Neutrophils % 78.3 % (38.7-73.9); Platelet Count 252 T/CUMM (130-400); Red Blood Count 2.74 MC/CUMM (3.8-5.5); Red Cell Distribution Width 18.1 % (9.3-17.3)
[2020-05-02 15:23] LABS: Alanine Aminotransferase 19 U/L (13-56); Albumin 3.5 G/DL (3.4-5.0); Alkaline Phosphatase 84 U/L (45-117); Aspartate Amino Transferase 19 U/L (0-37); Bilirubin,Total < 0.39 MG/DL (0.2-1.0); Blood Urea Nitrogen 30 MG/DL (7-18); Calcium 9.1 MG/DL (8.5-10.1); Estimated Glom Filtration Rate 101 ML/MIN; Glucose 162 MG/DL (74-106); Osmolality,Calculated 290.3 MOS/KG (273-304); Total Protein 7.6 G/DL (6.4-8.3)
[2020-05-02] MEDS ORDERED: DEXTROSE 50% 25 GM/50 ML VIAL IV PRN (16:39)
[2020-05-02] MEDS ORDERED: ACETAMINOPHEN 325 MG TABLET PO PRN (16:39)
[2020-05-02] MEDS ORDERED: GLUCAGON 1 MG VIAL IM PRN (16:39)
[2020-05-02] MEDS ORDERED: ONDANSETRON 4 MG/2 ML VIAL IV PRN (16:39)
[2020-05-02] MEDS ORDERED: SODIUM CHLORIDE 0.9% 1,000 ML IV PRN ×3 (16:42→22:19)
[2020-05-02] MEDS ORDERED: OXYBUTYNIN XL 10 MG TABLET PO PRN (16:46)
[2020-05-02] MEDS: SODIUM CHLORIDE 0.9% 1,000 ML IV SCH (17:30)
[2020-05-02] MEDS: INSULIN LISPRO 100 UNIT/ML SUBCUT SCH ×2 (18:00→22:00)
[2020-05-02 19:17] LABS: Hematocrit 20.7 VOL% (35.7-47.0); Hemoglobin 6.6 GM/DL (12.0-16.0)
[2020-05-02 19:42] LABS: Troponin I < 0.015 NG/ML (0.00-0.045)
[2020-05-02] MEDS: PANTOPRAZOLE 40 MG VIAL IV SCH (21:42)
[2020-05-02] MEDS: GABAPENTIN 300 MG CAPSULE PO SCH (21:44)
[2020-05-02] MEDS: DULoxetine 30 MG CAPSULE PO SCH (21:45)
[2020-05-02] MEDS: DOCUSATE SODIUM 100 MG CAPSULE PO SCH (21:45)
[2020-05-02] MEDS: POTASSIUM CHLORIDE 10 MEQ TABLET PO SCH (21:45)
[2020-05-02] MEDS: SIMVASTATIN 20 MG TABLET PO SCH (21:45)
[2020-05-02] MEDS: OMEGA 3 ACID ETHYL ESTERS 1 GM CAPSULE PO SCH (21:45)
[2020-05-02] MEDS: SERTRALINE 50 MG TABLET PO SCH (21:45)
[2020-05-02] MEDS: cloNIDine 0.1 MG TABLET PO SCH (21:46)
[2020-05-02] MEDS ORDERED: FUROSEMIDE 20 MG/2 ML VIAL IV PRN (22:19)
[2020-05-02 23:47] LABS: Bilirubin,Urine Negative (Negative); Blood, Urine Negative (Negative); Glucose,Urine (UA) Negative (Negative); Ketones,Urine Negative (Negative); Nitrite,Urine Negative (Negative); Protein,Urine Negative; RBC,Urine 2 /HPF (0-4); Squamous Epithelial Cell,Urine Occasional /HPF (0-10); Urine Appearance CLEAR (Clear); Urine Color Yellow (Yellow); Urine Specific Gravity 1.016 (1.001-1.035); Urine Urobilinogen < 2.0 EU/DL (0.2-1.0); WBC,Urine 1 /HPF (0-6)
[2020-05-03] MEDS: INSULIN LISPRO 100 UNIT/ML SUBCUT SCH ×6 (00:21→21:48)
[2020-05-03] MEDS: SODIUM CHLORIDE 0.9% 1,000 ML IV SCH ×2 (06:00→21:49)
[2020-05-03 08:10] LABS: Basophils # 0.1 10*3/uL (0.0-0.2); Basophils % 0.5 % (0.0-0.8); Eosinophils # 0.1 10*3/uL (0.0-0.87); Eosinophils % 1.3 % (0.00-10.9); Hematocrit 35.3 VOL% (35.7-47.0); Hemoglobin 11.4 GM/DL (12.0-16.0); Immature Granulocytes % 0.5 %; Immature Granulocytes Absolute 0.06 #; Lymphocytes # 1.4 10*3/uL (1.4-4.0); Lymphocytes % 12.7 % (21.3-54.2); Mean Corpuscular HGB Conc 32.3 GM/DL (32-36); Mean Corpuscular Volume 87.2 FL (87-102); Monocytes % 6.5 % (1.7-12.7); Neutrophils % 78.5 % (38.7-73.9); Platelet Count 263 T/CUMM (130-400); Red Blood Count 4.05 MC/CUMM (3.8-5.5); Red Cell Distribution Width 17.3 % (9.3-17.3); White Blood Count 11.1 T/CUMM (4-12)
[2020-05-03 08:51] LABS: Risk Ratio 3.86; VLDL CHOLESTEROL 26.4 MG/DL
[2020-05-03 08:52] LABS: Albumin 3.7 G/DL (3.4-5.0); Bilirubin,Total 0.8 MG/DL (0.2-1.0); Calcium 9.4 MG/DL (8.5-10.1); Osmolality,Calculated 279.7 MOS/KG (273-304); Total Protein 8.3 G/DL (6.4-8.3)
[2020-05-03] MEDS: DULoxetine 30 MG CAPSULE PO SCH ×2 (10:10→21:47)
[2020-05-03] MEDS: LUBIPROSTONE 8 MCG CAPSULE PO SCH (10:10)
[2020-05-03] MEDS: OLMESARTAN 20 MG TABLET PO SCH (10:10)
[2020-05-03] MEDS: LETROZOLE 2.5 MG TABLET PO SCH (10:10)
[2020-05-03] MEDS: GABAPENTIN 300 MG CAPSULE PO SCH ×2 (10:11→21:47)
[2020-05-03] MEDS: POTASSIUM CHLORIDE 10 MEQ TABLET PO SCH ×2 (10:11→21:48)
[2020-05-03] MEDS: OMEGA 3 ACID ETHYL ESTERS 1 GM CAPSULE PO SCH ×2 (10:11→21:46)
[2020-05-03] MEDS: amLODIPine 5 MG TABLET PO SCH (10:11)
[2020-05-03] MEDS: FOLIC ACID 1 MG TABLET PO SCH (10:11)
[2020-05-03] MEDS: hydroCHLOROthiazide 12.5 MG CAPSULE PO SCH (10:11)
[2020-05-03] MEDS: SERTRALINE 50 MG TABLET PO SCH ×2 (10:12→21:47)
[2020-05-03 10:38] LABS: Hematocrit 31.7 VOL% (35.7-47.0); Hemoglobin 10.3 GM/DL (12.0-16.0)
[2020-05-03] MEDS ORDERED: propofoL 200 MG/20 ML VIAL IV ONE (11:34)
[2020-05-03] MEDS ORDERED: LIDOCAINE 2% 5 ML VIAL ONE (11:34)
[2020-05-03] MEDS: PANTOPRAZOLE 40 MG VIAL IV SCH ×2 (14:13→21:43)
[2020-05-03] MEDS: LACTULOSE 20 GM/30 ML UDCUP PO SCH ×2 (14:14→21:46)
[2020-05-03 14:50] LABS: Hematocrit 31.4 VOL% (35.7-47.0); Hemoglobin 10.2 GM/DL (12.0-16.0)
[2020-05-03 20:42] LABS: Hematocrit 32.3 VOL% (35.7-47.0); Hemoglobin 10.7 GM/DL (12.0-16.0)
[2020-05-03] MEDS: SIMVASTATIN 20 MG TABLET PO SCH (21:47)
[2020-05-03] MEDS: DOCUSATE SODIUM 100 MG CAPSULE PO SCH (21:47)
[2020-05-03] MEDS: cloNIDine 0.1 MG TABLET PO SCH (21:47)
[2020-05-04] MEDS: INSULIN LISPRO 100 UNIT/ML SUBCUT SCH ×4 (00:23→12:48)
[2020-05-04] MEDS: LACTULOSE 20 GM/30 ML UDCUP PO SCH (05:14)
[2020-05-04 06:19] LABS: Basophils % 0.5 % (0.0-0.8); Eosinophils # 0.1 10*3/uL (0.0-0.87); Eosinophils % 1.5 % (0.00-10.9); Hematocrit 32.2 VOL% (35.7-47.0); Hemoglobin 10.2 GM/DL (12.0-16.0); Immature Granulocytes % 0.5 %; Immature Granulocytes Absolute 0.04 #; Lymphocytes # 1.1 10*3/uL (1.4-4.0); Mean Corpuscular HGB Conc 31.7 GM/DL (32-36); Mean Corpuscular Volume 88.5 FL (87-102); Mean Platelet Volume 11.2 FL (9.6-12.0); Monocytes % 7.2 % (1.7-12.7); Neutrophils % 76.3 % (38.7-73.9); Platelet Count 229 T/CUMM (130-400); Red Blood Count 3.64 MC/CUMM (3.8-5.5); Red Cell Distribution Width 17.4 % (9.3-17.3); White Blood Count 7.5 T/CUMM (4-12)
[2020-05-04 06:52] LABS: Albumin 3.2 G/DL (3.4-5.0); Bilirubin,Total 0.4 MG/DL (0.2-1.0); Calcium 8.6 MG/DL (8.5-10.1); Osmolality,Calculated 280.4 MOS/KG (273-304); Total Protein 7.4 G/DL (6.4-8.3)
[2020-05-04] MEDS: POTASSIUM CHLORIDE 10 MEQ TABLET PO SCH (09:20)
[2020-05-04] MEDS: GABAPENTIN 300 MG CAPSULE PO SCH (09:20)
[2020-05-04] MEDS: LETROZOLE 2.5 MG TABLET PO SCH (09:21)
[2020-05-04] MEDS: OLMESARTAN 20 MG TABLET PO SCH (09:21)
[2020-05-04] MEDS: FOLIC ACID 1 MG TABLET PO SCH (09:21)
[2020-05-04] MEDS: amLODIPine 5 MG TABLET PO SCH (09:21)
[2020-05-04] MEDS: SERTRALINE 50 MG TABLET PO SCH (09:21)
[2020-05-04] MEDS: hydroCHLOROthiazide 12.5 MG CAPSULE PO SCH (09:21)
[2020-05-04] MEDS: LUBIPROSTONE 8 MCG CAPSULE PO SCH (09:21)
[2020-05-04] MEDS: DULoxetine 30 MG CAPSULE PO SCH (09:21)
[2020-05-04] MEDS: OMEGA 3 ACID ETHYL ESTERS 1 GM CAPSULE PO SCH (09:21)
[2020-05-04] MEDS: SODIUM CHLORIDE 0.9% 1,000 ML IV SCH (09:22)
[2020-05-04] MEDS: PANTOPRAZOLE 40 MG VIAL IV SCH (09:26)
[2020-05-04 12:01] VITALS: BP 130/84
[2020-05-07] MEDS ORDERED: METHOTREXATE 2.5 MG TABLET PO SCH (09:00)
== END 2020-05-04 14:00 | disposition home or self-care (01) | DRG 378 ==
LOC: N.ED 14:12 → N.EDINP 16:38 → SUATTDRO 16:38 → N.3E 17:13 → N.5E 17:40
PROVIDERS: ADMIT Internal Medicine; ATTEND Internal Medicine

== ENCOUNTER 2020-06-19 12:44 | Inpatient (IN) ==
[2020-06-19] MEDS ORDERED: SODIUM CHLORIDE 0.9% 1,000 ML IV STA (13:01)
[2020-06-19 13:57] LABS: Basophils # 0.1 10*3/uL (0.0-0.2); Basophils % 0.4 % (0.0-0.8); Hematocrit 23.7 VOL% (35.7-47.0); Hemoglobin 7.6 GM/DL (12.0-16.0); Immature Granulocytes % 0.8 %; Immature Granulocytes Absolute 0.13 #; Lymphocytes # 0.8 10*3/uL (1.4-4.0); Mean Corpuscular HGB Conc 32.1 GM/DL (32-36); Mean Corpuscular Volume 89.8 FL (87-102); Mean Platelet Volume 10.6 FL (9.6-12.0); Monocytes % 2.9 % (1.7-12.7); Neutrophils % 90.9 % (38.7-73.9); Platelet Count 299 T/CUMM (130-400); Red Blood Count 2.64 MC/CUMM (3.8-5.5); Red Cell Distribution Width 17.7 % (9.3-17.3); White Blood Count 16.7 T/CUMM (4-12)
[2020-06-19 14:16] LABS: Alanine Aminotransferase 20 U/L (13-56); Albumin 3.3 G/DL (3.4-5.0); Alkaline Phosphatase 83 U/L (45-117); Aspartate Amino Transferase 18 U/L (0-37); Bilirubin,Total < 0.39 MG/DL (0.2-1.0); Blood Urea Nitrogen 30 MG/DL (7-18); Calcium 8.7 MG/DL (8.5-10.1); Estimated Glom Filtration Rate 87 ML/MIN; Glucose 209 MG/DL (74-106); Osmolality,Calculated 290.4 MOS/KG (273-304); Total Protein 7.2 G/DL (6.4-8.3)
[2020-06-19 14:49] LABS: INR 1.1; PT Patient Result 11.5 SECS (9.8-11.9); Partial Thromboplastin Time 25.9 SECS (23.9-33.8)
[2020-06-19] MEDS ORDERED: GLUCAGON 1 MG VIAL IM PRN ×2 (16:01→17:37)
[2020-06-19] MEDS ORDERED: DEXTROSE 50% 25 GM/50 ML VIAL IV PRN ×2 (16:01→17:37)
[2020-06-19 17:28] LABS: Bacteria,Urine Occasional /HPF (Few); Bilirubin,Urine Negative (Negative); Blood, Urine Small mg/dL (Negative); Glucose,Urine (UA) Negative (Negative); Ketones,Urine Negative (Negative); Mucus,Urine Occasional /LPF (Occasional); Nitrite,Urine Negative (Negative); Protein,Urine Negative; RBC,Urine 12 /HPF (0-4); Squamous Epithelial Cell,Urine Few /HPF (0-10); Urine Appearance CLOUDY (Clear); Urine Color Yellow (Yellow); Urine Specific Gravity 1.021 (1.001-1.035); Urine Urobilinogen < 2.0 EU/DL (0.2-1.0); WBC,Urine 2 /HPF (0-6)
[2020-06-19] MEDS: INSULIN LISPRO 100 UNIT/ML SUBCUT SCH (18:21)
[2020-06-19] MEDS: SODIUM CHLORIDE 0.9% 1,000 ML IV SCH (18:38)
[2020-06-19 18:57] LABS: Lymphocytes 7 % (20-55); Platelet Estimate Normal; Polychromasia Slight; Segmented Neutrophils 85 % (50-85); Total Cells Counted 100
[2020-06-19] MEDS: PANTOPRAZOLE 40 MG VIAL IV SCH (22:04)
[2020-06-19] MEDS: PIPERACILLIN/TAZOBACTAM 3,375 MG in SODIUM CHLORIDE 0.9% 100 ML IV SCH (22:06)
[2020-06-19 22:37] LABS: Hematocrit 22.9 VOL% (35.7-47.0)
[2020-06-20] MEDS: INSULIN LISPRO 100 UNIT/ML SUBCUT SCH ×4 (00:16→18:34)
[2020-06-20] MEDS: SODIUM CHLORIDE 0.9% 1,000 ML IV SCH ×2 (00:40→14:37)
[2020-06-20 01:31] LABS: Basophils % 0.3 % (0.0-0.8); Eosinophils % 0.1 % (0.00-10.9); Hematocrit 20.5 VOL% (35.7-47.0); Hemoglobin 6.5 GM/DL (12.0-16.0); Immature Granulocytes % 0.4 %; Immature Granulocytes Absolute 0.06 #; Lymphocytes # 1.3 10*3/uL (1.4-4.0); Mean Corpuscular HGB Conc 31.7 GM/DL (32-36); Mean Corpuscular Volume 91.1 FL (87-102); Mean Platelet Volume 10.8 FL (9.6-12.0); Monocytes % 6.3 % (1.7-12.7); Neutrophils % 82.9 % (38.7-73.9); Platelet Count 252 T/CUMM (130-400); Red Blood Count 2.25 MC/CUMM (3.8-5.5); Red Cell Distribution Width 17.8 % (9.3-17.3); White Blood Count 13.3 T/CUMM (4-12)
[2020-06-20 01:49] LABS: Calcium 8.1 MG/DL (8.5-10.1)
[2020-06-20] MEDS: PIPERACILLIN/TAZOBACTAM 3,375 MG in SODIUM CHLORIDE 0.9% 100 ML IV SCH ×2 (05:37→23:11)
[2020-06-20] MEDS ORDERED: SODIUM CHLORIDE 0.9% 1,000 ML IV PRN (06:19)
[2020-06-20] MEDS ORDERED: FUROSEMIDE 20 MG/2 ML VIAL IV PRN (06:19)
[2020-06-20] MEDS ORDERED: POTASSIUM CHLORIDE 20 MEQ TABLET PO ONE (08:37)
[2020-06-20] MEDS: ONDANSETRON 4 MG/2 ML VIAL IV PRN (09:27)
[2020-06-20] MEDS: PANTOPRAZOLE 40 MG VIAL IV SCH ×2 (09:27→23:10)
[2020-06-20 09:53] LABS: Hematocrit 21.3 VOL% (35.7-47.0); Hemoglobin 6.5 GM/DL (12.0-16.0)
[2020-06-20] MEDS: POTASSIUM CHLORIDE RIDER 10 MEQ in PREMIX 1 EACH IV SCH ×5 (11:47→15:43)
[2020-06-20 14:27] LABS: Hematocrit 21.5 VOL% (35.7-47.0); Hemoglobin 6.5 GM/DL (12.0-16.0)
[2020-06-21] MEDS: INSULIN LISPRO 100 UNIT/ML SUBCUT SCH ×3 (01:12→13:15)
[2020-06-21 02:24] LABS: Hematocrit 29.2 VOL% (35.7-47.0); Hemoglobin 8.8 GM/DL (12.0-16.0)
[2020-06-21 06:57] LABS: Basophils # 0.1 10*3/uL (0.0-0.2); Basophils % 0.5 % (0.0-0.8); Eosinophils # 0.1 10*3/uL (0.0-0.87); Eosinophils % 1.3 % (0.00-10.9); Hematocrit 26.8 VOL% (35.7-47.0); Hemoglobin 8.1 GM/DL (12.0-16.0); Immature Granulocytes % 0.4 %; Immature Granulocytes Absolute 0.04 #; Lymphocytes # 1.2 10*3/uL (1.4-4.0); Lymphocytes % 12.5 % (21.3-54.2); Mean Corpuscular HGB Conc 30.2 GM/DL (32-36); Mean Corpuscular Volume 92.1 FL (87-102); Mean Platelet Volume 9.6 FL (9.6-12.0); Monocytes % 6.3 % (1.7-12.7); Platelet Count 238 T/CUMM (130-400); Red Blood Count 2.91 MC/CUMM (3.8-5.5); Red Cell Distribution Width 17.8 % (9.3-17.3); White Blood Count 9.4 T/CUMM (4-12)
[2020-06-21] MEDS ORDERED: LACTATED RINGERS 1,000 ML IV SCH (07:00)
[2020-06-21] MEDS ORDERED: LIDOCAINE 2% 5 ML VIAL ONE (07:31)
[2020-06-21] MEDS ORDERED: propofoL 200 MG/20 ML VIAL IV ONE (07:31)
[2020-06-21] MEDS ORDERED: SODIUM CHLORIDE 0.9% 1,000 ML IV PRN (07:57)
[2020-06-21] MEDS ORDERED: POTASSIUM CHLORIDE RIDER 10 MEQ in PREMIX 1 EACH IV SCH (08:00)
[2020-06-21] MEDS: ONDANSETRON 4 MG/2 ML VIAL IV PRN (08:22)
[2020-06-21] MEDS: SODIUM CHLORIDE 0.9% 1,000 ML IV SCH (09:00)
[2020-06-21] MEDS: PANTOPRAZOLE 40 MG VIAL IV SCH (10:20)
[2020-06-21] MEDS: PIPERACILLIN/TAZOBACTAM 3,375 MG in SODIUM CHLORIDE 0.9% 100 ML IV SCH (10:20)
[2020-06-21] MEDS ORDERED: POTASSIUM CHLORIDE 20 MEQ TABLET PO ONE (13:18)
[2020-06-21 15:44] VITALS: BP 147/82
== END 2020-06-21 18:22 | disposition home or self-care (01) | DRG 378 ==
LOC: EDUNIT# → EDSEX → SUATTDRO → EDBD → N.ED 12:44 → N.EDINP 12:44 → SUATTDRO 17:20 → N.5E 23:09 → SUATTDRO 06-20 07:56
PROVIDERS: ADMIT Internal Medicine; ATTEND Internal Medicine

== ENCOUNTER 2022-04-22 15:03 | Inpatient (IN) ==
[2022-04-22] MEDS ORDERED: ACETAMINOPHEN 325 MG TABLET ONE (15:50)
[2022-04-22 17:44] LABS: Basophils % 0.2 % (0.0-0.8); Immature Granulocytes % 0.3 %; Immature Granulocytes Absolute 0.03 #; Lymphocytes # 0.5 10*3/uL (1.4-4.0); Lymphocytes % 5.2 % (21.3-54.2); Mean Corpuscular HGB Conc 33.3 GM/DL (32-36); Mean Corpuscular Volume 93.5 FL (87-102); Monocytes # 0.7 10*3/uL (0.11-0.8); Monocytes % 7.2 % (1.7-12.7); Neutrophils % 87.1 % (38.7-73.9); Platelet Count 194 T/CUMM (130-400); Red Blood Count 3.85 MC/CUMM (3.8-5.5); Red Cell Distribution Width 15.2 % (9.3-17.3); White Blood Count 9.1 T/CUMM (4-12)
[2022-04-22 17:47] LABS: Albumin 3.6 G/DL (3.4-5.0); Bilirubin,Total 0.6 MG/DL (0.20-1.00); Calcium 9.5 MG/DL (8.5-10.1); Osmolality,Calculated 271.1 MOS/KG (273-304); Potassium 3.4 MMOL/L (3.5-5.1)
[2022-04-22] MEDS ORDERED: ACETAMINOPHEN 500 MG TABLET PO STA (17:48)
[2022-04-22 19:38] LABS: Hyaline Casts,Urine 1 /LPF (0-3); RBC,Urine <1 /HPF (0-4)
[2022-04-22 19:40] LABS: Urine Appearance Clear (Clear); Urine Color Yellow (Yellow)
[2022-04-22 19:41] LABS: Bilirubin,Urine Negative (Negative); Blood, Urine Negative (Negative); Glucose,Urine (UA) Negative (Negative); Ketones,Urine Negative (Negative); Nitrite,Urine Negative (Negative); Protein,Urine Negative (Negative); Urine Urobilinogen 0.2 eU/dL (<2.0)
[2022-04-22] MEDS ORDERED: cefTRIAXone 1,000 MG in SODIUM CHLORIDE 0.9% 100 ML IV STA (19:53)
[2022-04-22] MEDS ORDERED: DOCUSATE SODIUM 100 MG CAPSULE PO PRN (20:16)
[2022-04-22] MEDS ORDERED: GLUCAGON 1 MG VIAL IM PRN (20:16)
[2022-04-22] MEDS ORDERED: DEXTROSE 10% 250 ML BAG IV PRN (20:16)
[2022-04-22] MEDS ORDERED: ONDANSETRON 4 MG/2 ML VIAL IV PRN (20:16)
[2022-04-22] MEDS ORDERED: POTASSIUM CHLORIDE 20 MEQ TABLET PO STA (20:47)
[2022-04-22] MEDS ORDERED: VANCOMYCIN INJ 1,500 MG in SODIUM CHLORIDE 0.9% 250 ML IV SCH (21:00)
[2022-04-22] MEDS: PIPERACILLIN/TAZOBACTAM 3,375 MG in SODIUM CHLORIDE 0.9% 100 ML IV SCH (21:17)
[2022-04-22] MEDS: ENOXAPARIN 40 MG/0.4 ML SYRINGE SUBCUT SCH (21:17)
[2022-04-22] MEDS: INSULIN REGULAR 100 UNIT/ML SUBCUT SCH (21:22)
[2022-04-22] MEDS ORDERED: VANCOMYCIN INJ 1,500 MG in SODIUM CHLORIDE 0.9% 500 ML IV SCH (22:30)
[2022-04-22] MEDS: ACETYLCYSTEINE 600 MG CAPSULE PO SCH (22:30)
[2022-04-23] MEDS ORDERED: PANTOPRAZOLE 40 MG TABLET PO ONE (01:00)
[2022-04-23] MEDS ORDERED: ASPIRIN EC 81 MG TABLET PO ONE (01:00)
[2022-04-23] MEDS: SODIUM CHLORIDE 0.45% 1,000 ML IV SCH ×2 (02:12→15:31)
[2022-04-23 04:55] LABS: Basophils % 0.2 % (0.0-0.8); Hematocrit 35.6 VOL% (35.7-47.0); Immature Granulocytes % 0.5 %; Immature Granulocytes Absolute 0.04 #; Lymphocytes # 0.4 10*3/uL (1.4-4.0); Lymphocytes % 4.4 % (21.3-54.2); Mean Corpuscular HGB Conc 33.7 GM/DL (32-36); Mean Corpuscular Volume 93.9 FL (87-102); Mean Platelet Volume 10.8 FL (9.6-12.0); Monocytes # 0.6 10*3/uL (0.11-0.8); Monocytes % 6.8 % (1.7-12.7); Neutrophils % 88.1 % (38.7-73.9); Platelet Count 189 T/CUMM (130-400); Red Blood Count 3.79 MC/CUMM (3.8-5.5); Red Cell Distribution Width 15.1 % (9.3-17.3); White Blood Count 8.1 T/CUMM (4-12)
[2022-04-23 05:27] LABS: Band Neutrophils 5 % (0-10); Calcium 8.8 MG/DL (8.5-10.1); Eosinophils 1 % (0-10); Lymphocytes 5 % (20-55); Microcytosis Slight; Osmolality,Calculated 275.8 MOS/KG (273-304); Potassium 3.1 MMOL/L (3.5-5.1); Thyroid Stimulating Hormone 0.705 uIU/ml (0.358-3.74); Total Cells Counted 100
[2022-04-23 05:28] LABS: Ovalocytes Slight; Platelet Estimate Adequate
[2022-04-23] MEDS: PIPERACILLIN/TAZOBACTAM 3,375 MG in SODIUM CHLORIDE 0.9% 100 ML IV SCH ×3 (09:26→23:23)
[2022-04-23] MEDS: INSULIN REGULAR 100 UNIT/ML SUBCUT SCH ×4 (09:26→21:33)
[2022-04-23] MEDS: ACETYLCYSTEINE 600 MG CAPSULE PO SCH ×2 (09:27→21:18)
[2022-04-23] MEDS: amLODIPine 5 MG TABLET PO SCH (16:24)
[2022-04-23] MEDS: ACETAMINOPHEN 325 MG TABLET PO PRN (16:43)
[2022-04-23 20:24] LABS: Hematocrit 37.4 VOL% (35.7-47.0); Hemoglobin 12.6 GM/DL (12.0-16.0)
[2022-04-23] MEDS: PANTOPRAZOLE 40 MG TABLET PO SCH (21:18)
[2022-04-23] MEDS: METOPROLOL TARTRATE 25 MG TABLET PO SCH (21:18)
[2022-04-23] MEDS: ASPIRIN EC 81 MG TABLET PO SCH (21:32)
[2022-04-23] MEDS: ENOXAPARIN 40 MG/0.4 ML SYRINGE SUBCUT SCH (21:32)
[2022-04-23] MEDS: PRAMOXINE/HYDROCORTISONE RECTAL FOAM 10 GM CAN RECTAL PRN (23:54)
[2022-04-24] MEDS: ACETAMINOPHEN 325 MG TABLET PO PRN (00:09)
[2022-04-24] MEDS ORDERED: hydrALAZINE 20 MG/1 ML VIAL IV ONE (00:15)
[2022-04-24 07:42] LABS: Basophils % 0.3 % (0.0-0.8); Hematocrit 36.1 VOL% (35.7-47.0); Hemoglobin 12.3 GM/DL (12.0-16.0); Immature Granulocytes % 0.2 %; Immature Granulocytes Absolute 0.01 #; Lymphocytes # 0.6 10*3/uL (1.4-4.0); Lymphocytes % 9.7 % (21.3-54.2); Mean Corpuscular HGB Conc 34.1 GM/DL (32-36); Mean Corpuscular Volume 93.5 FL (87-102); Mean Platelet Volume 10.4 FL (9.6-12.0); Monocytes # 0.6 10*3/uL (0.11-0.8); Monocytes % 10.2 % (1.7-12.7); Neutrophils % 79.6 % (38.7-73.9); Platelet Count 179 T/CUMM (130-400); Red Blood Count 3.86 MC/CUMM (3.8-5.5); Red Cell Distribution Width 15.1 % (9.3-17.3); White Blood Count 6.2 T/CUMM (4-12)
[2022-04-24] MEDS ORDERED: INFLUENZA VIRUS VACCINE 0.5 ML SYRINGE IM ONE (08:00)
[2022-04-24 08:05] LABS: Calcium 8.7 MG/DL (8.5-10.1); Osmolality,Calculated 284.1 MOS/KG (273-304)
[2022-04-24] MEDS: NEBIVOLOL 10 MG TABLET PO SCH (09:21)
[2022-04-24] MEDS: ACETYLCYSTEINE 600 MG CAPSULE PO SCH ×2 (09:21→20:47)
[2022-04-24] MEDS: INSULIN REGULAR 100 UNIT/ML SUBCUT SCH ×4 (09:21→20:51)
[2022-04-24] MEDS: amLODIPine 5 MG TABLET PO SCH (09:21)
[2022-04-24] MEDS: METOPROLOL TARTRATE 25 MG TABLET PO SCH ×2 (09:21→20:47)
[2022-04-24] MEDS: INSULIN GLARGINE 100 UNIT/ML SUBCUT SCH (09:21)
[2022-04-24] MEDS: ASCORBIC ACID 500 MG TABLET PO SCH (09:21)
[2022-04-24] MEDS: PANTOPRAZOLE 40 MG TABLET PO SCH ×2 (09:22→20:47)
[2022-04-24] MEDS: FOLIC ACID 1 MG TABLET PO SCH (09:22)
[2022-04-24] MEDS: SIMVASTATIN 40 MG TABLET PO SCH (09:22)
[2022-04-24] MEDS: cefTRIAXone 1,000 MG in SODIUM CHLORIDE 0.9% 100 ML IV SCH (09:23)
[2022-04-24 09:33] LABS: Band Neutrophils 7 % (0-10); Lymphocytes 9 % (20-55); Total Cells Counted 100
[2022-04-24 09:34] LABS: Microcytosis Slight; Ovalocytes Slight; Platelet Estimate Adequate
[2022-04-24 11:10] LABS: HIV Antigen/Antibody Result Nonreactive (Nonreactive); Hepatitis B Core IgM Quant 0.07 Index; Hepatitis B Surface Ag Quant < 0.10 Index; Hepatitis B Surface Ag Result Non-Reactive (NonReactive); Hepatitis C Virus Ab Quant 0.02 Index; Hepatitis C Virus Ab Result Non-Reactive (NonReactive)
[2022-04-24] MEDS: PIPERACILLIN/TAZOBACTAM 3,375 MG in SODIUM CHLORIDE 0.9% 100 ML IV SCH (11:16)
[2022-04-24] MEDS ORDERED: POTASSIUM CHLORIDE 20 MEQ TABLET PO ONE (12:17)
[2022-04-24] MEDS: AMPICILLIN INJ 1,000 MG in SODIUM CHLORIDE 0.9% 100 ML IV SCH ×2 (12:53→19:36)
[2022-04-24] MEDS: VANCOMYCIN INJ 1,500 MG in SODIUM CHLORIDE 0.9% 500 ML IV SCH (15:22)
[2022-04-24] MEDS: SODIUM CHLORIDE 0.45% 1,000 ML IV SCH (15:51)
[2022-04-24] MEDS: ENOXAPARIN 40 MG/0.4 ML SYRINGE SUBCUT SCH (20:48)
[2022-04-24] MEDS: ASPIRIN EC 81 MG TABLET PO SCH (20:48)
[2022-04-25] MEDS: SODIUM CHLORIDE 0.45% 1,000 ML IV SCH (00:25)
[2022-04-25] MEDS: AMPICILLIN INJ 1,000 MG in SODIUM CHLORIDE 0.9% 100 ML IV SCH ×3 (00:39→12:53)
[2022-04-25] MEDS: VANCOMYCIN INJ 1,500 MG in SODIUM CHLORIDE 0.9% 500 ML IV SCH (04:28)
[2022-04-25] MEDS: PRAMOXINE/HYDROCORTISONE RECTAL FOAM 10 GM CAN RECTAL PRN (05:26)
[2022-04-25 06:46] LABS: Basophils % 0.8 % (0.0-0.8); Eosinophils # 0.1 10*3/uL (0.0-0.87); Hematocrit 35.7 VOL% (35.7-47.0); Hemoglobin 12.1 GM/DL (12.0-16.0); Immature Granulocytes % 0.4 %; Immature Granulocytes Absolute 0.02 #; Lymphocytes # 0.8 10*3/uL (1.4-4.0); Lymphocytes % 15.6 % (21.3-54.2); Mean Corpuscular HGB Conc 33.9 GM/DL (32-36); Mean Corpuscular Volume 93.2 FL (87-102); Monocytes # 0.7 10*3/uL (0.11-0.8); Neutrophils % 68.2 % (38.7-73.9); Platelet Count 193 T/CUMM (130-400); Red Blood Count 3.83 MC/CUMM (3.8-5.5); Red Cell Distribution Width 15.3 % (9.3-17.3); White Blood Count 4.9 T/CUMM (4-12)
[2022-04-25 07:02] LABS: Calcium 8.6 MG/DL (8.5-10.1); Osmolality,Calculated 282.1 MOS/KG (273-304); Potassium 2.9 MMOL/L (3.5-5.1)
[2022-04-25 08:49] LABS: Anisocytosis Slight; Platelet Estimate Normal
[2022-04-25] MEDS ORDERED: POTASSIUM CHLORIDE 20 MEQ TABLET PO ONE ×2 (09:00→14:06)
[2022-04-25] MEDS: NEBIVOLOL 10 MG TABLET PO SCH (09:22)
[2022-04-25] MEDS: INSULIN GLARGINE 100 UNIT/ML SUBCUT SCH (09:22)
[2022-04-25] MEDS: SIMVASTATIN 40 MG TABLET PO SCH (09:22)
[2022-04-25] MEDS: FOLIC ACID 1 MG TABLET PO SCH (09:23)
[2022-04-25] MEDS: METOPROLOL TARTRATE 25 MG TABLET PO SCH ×2 (09:23→20:13)
[2022-04-25] MEDS: ASCORBIC ACID 500 MG TABLET PO SCH (09:23)
[2022-04-25] MEDS: PANTOPRAZOLE 40 MG TABLET PO SCH ×2 (09:23→20:13)
[2022-04-25] MEDS: INSULIN REGULAR 100 UNIT/ML SUBCUT SCH ×4 (09:24→20:13)
[2022-04-25] MEDS: cefTRIAXone 2,000 MG in SODIUM CHLORIDE 0.9% 100 ML IV SCH ×2 (09:30→20:12)
[2022-04-25] MEDS: amLODIPine 5 MG TABLET PO SCH (09:32)
[2022-04-25] MEDS ORDERED: AMPICILLIN INJ 2,000 MG in SODIUM CHLORIDE 0.9% 100 ML IV SCH (12:00)
[2022-04-25] MEDS: cefTRIAXone 1,000 MG in SODIUM CHLORIDE 0.9% 100 ML IV SCH (14:25)
[2022-04-25] MEDS: ASPIRIN EC 81 MG TABLET PO SCH (20:13)
[2022-04-25] MEDS: ENOXAPARIN 40 MG/0.4 ML SYRINGE SUBCUT SCH (20:13)
[2022-04-26] MEDS: INSULIN REGULAR 100 UNIT/ML SUBCUT SCH ×2 (07:58→11:43)
[2022-04-26] MEDS: cefTRIAXone 2,000 MG in SODIUM CHLORIDE 0.9% 100 ML IV SCH (08:22)
[2022-04-26] MEDS: METOPROLOL TARTRATE 25 MG TABLET PO SCH (08:22)
[2022-04-26] MEDS: ASCORBIC ACID 500 MG TABLET PO SCH (08:22)
[2022-04-26] MEDS: PANTOPRAZOLE 40 MG TABLET PO SCH (08:22)
[2022-04-26] MEDS: amLODIPine 5 MG TABLET PO SCH (08:23)
[2022-04-26] MEDS: FOLIC ACID 1 MG TABLET PO SCH (08:23)
[2022-04-26] MEDS: NEBIVOLOL 10 MG TABLET PO SCH (08:23)
[2022-04-26] MEDS: SIMVASTATIN 40 MG TABLET PO SCH (08:23)
[2022-04-26] MEDS: INSULIN GLARGINE 100 UNIT/ML SUBCUT SCH (09:28)
[2022-04-26 09:34] LABS: Basophils % 0.6 % (0.0-0.8); Eosinophils # 0.1 10*3/uL (0.0-0.87); Eosinophils % 0.8 % (0.00-10.9); Hematocrit 37.1 VOL% (35.7-47.0); Hemoglobin 12.3 GM/DL (12.0-16.0); Immature Granulocytes % 0.5 %; Immature Granulocytes Absolute 0.03 #; Lymphocytes # 0.8 10*3/uL (1.4-4.0); Lymphocytes % 12.9 % (21.3-54.2); Mean Corpuscular HGB Conc 33.2 GM/DL (32-36); Mean Corpuscular Volume 93.2 FL (87-102); Mean Platelet Volume 10.4 FL (9.6-12.0); Monocytes # 0.7 10*3/uL (0.11-0.8); Monocytes % 10.1 % (1.7-12.7); Neutrophils % 75.1 % (38.7-73.9); Platelet Count 229 T/CUMM (130-400); Red Blood Count 3.98 MC/CUMM (3.8-5.5); Red Cell Distribution Width 15.3 % (9.3-17.3); White Blood Count 6.5 T/CUMM (4-12)
[2022-04-26 11:41] VITALS: BP 171/97
== END 2022-04-26 13:31 | disposition home health service (06) | DRG 867 ==
LOC: N.EDINP 15:03 → N.ED 15:03 → SUATTDRO 20:16 → N.5E 22:30 → SUATTDRO 04-24 08:48
PROVIDERS: ADMIT Internal Medicine Geriatric Medicine; ATTEND Internal Medicine